=== PATIENT | male | born 1995 | race African-American/Black ===

== ENCOUNTER 2016-11-03 10:36 | Emergency (ER) | payer OTHER | END 2016-11-03 12:45 | disposition home or self-care (01) | LOC: FER 10:36 | DX: J98.01 Acute bronchospasm (principal); K21.9 Gastro-esophageal reflux disease without esophagitis; I10 Essential (primary) hypertension; F32.9 Major depressive disorder, single episode, unspecified; F17.229 Nicotine dependence, chewing tobacco, with unspecified nicotine-induced disorders; Z79.51 Long term (current) use of inhaled steroids; Z88.5 Allergy status to narcotic agent; Z79.899 Other long term (current) drug therapy; Z87.09 Personal history of other diseases of the respiratory system | CPT/HCPCS: 71020; 87450; 94640 ==

== ENCOUNTER 2022-03-16 10:00 | Emergency (ER) | payer OTHER ==
[~2022-03-16 10:00] MED LIST: FIORICET1 EACH PO; FLEXERIL10 MG PO; MEDROL 4MG DOSEP4 MG PO; ZOFRAN4 MG PO
[2022-03-16] MEDS ORDERED: ACULAR LS20 DROP/ML EYEBOTH (10:29)
== END 2022-03-16 10:36 | disposition home or self-care (01) ==
LOC: FER 10:00
DX: J30.2 Other seasonal allergic rhinitis (principal); I10 Essential (primary) hypertension; Z88.5 Allergy status to narcotic agent; Z79.899 Other long term (current) drug therapy
CPT/HCPCS: 99282